=== PATIENT | female | born 1980 | race Caucasian/White ===

== ENCOUNTER 2016-06-07 08:20 | Day surgery (SDC) | payer BC ==
[2016-06-07] MEDS ORDERED: Lactated Ringers 1,000 ML IV SCH (08:45)
[2016-06-07] MEDS ORDERED: Ondansetron 4 MG/2 ML SDV ONE (09:04)
[2016-06-07] MEDS ORDERED: Lidocaine 2% 5 ML SDV ONE (09:04)
[2016-06-07] MEDS ORDERED: Ketorolac 30 MG/ML SDV ONE (09:04)
[2016-06-07] MEDS ORDERED: fentaNYL 250 MCG/5 ML SDV ONE (09:04)
[2016-06-07] MEDS ORDERED: Midazolam 1 MG/ML 2 ML SDV ONE (09:04)
[2016-06-07] MEDS ORDERED: Propofol 200 MG/20 ML SDV ONE (09:04)
[2016-06-07] MEDS ORDERED: Rocuronium 10 MG/ML 10 ML Syringe ONE (09:04)
[2016-06-07] MEDS ORDERED: Neostigmine Methylsulfate 1 MG/ML 5 ML Syringe IV ONE (09:06)
[2016-06-07] MEDS ORDERED: Bupivacaine 0.25% 10 ML SDV ONE (09:38)
[2016-06-07] MEDS ORDERED: Methylene Blue 1% 10 ML SDV ONE (09:38)
--- NOTE | 2016-06-07 09:39 | PCM.PREANE ---
Preanesthetic Assessment - Anesthesia/Transfusion/Family Hx Anesthesia History: Prior Anesthesia Without Reaction Family History of Anesthesia Reaction: No Transfusion History: No Prior Transfusion(s) - Review of Systems General: No Symptoms Pulmonary: No Symptoms Cardiovascular: No Symptoms Gastrointestinal: No symptoms Neurological: No Symptoms - Physical Assessment NPO Status Date: 06/06/16 NPO Status Time: 21:30 O2 Sat by Pulse Oximetry: 98 Respiratory Rate: 16 Vital Signs: Last Vital Signs Temp 37.1 C 06/07/16 08:48 Pulse 57 L 06/07/16 08:48 Resp 16 06/07/16 08:48 BP 126/77 06/07/16 08:48 Pulse Ox 98 06/07/16 08:48 Height: 1.59 m Weight: 74.843 kg ASA Class: 2 Mental Status: Alert & Oriented x3 Airway Class: Mallampati = 2 Dentition: Reports: Normal Dentition ROM/Head Extension: Full Lungs: Clear to auscultation Cardiovascular: Regular Rate - Lab Values: Laboratory Last Values WBC 3.69 K/uL (4.0-11.0) L 06/07/16 08:41 RBC 4.27 M/uL (4.30-5.90) L 06/07/16 08:41 Hgb 13.5 g/dL (12.0-16.0) 06/07/16 08:41 Hct 39.9 % (36.0-46.0) 06/07/16 08:41 MCV 93.4 fL (80.0-98.0) 06/07/16 08:41 MCH 31.6 pg (27.0-32.0) 06/07/16 08:41 MCHC 33.8 g/dL (31.0-37.0) 06/07/16 08:41 RDW Std Deviation 41.3 fl (28.0-62.0) 06/07/16 08:41 RDW Coeff of Timothy 12 % (11.0-15.0) 06/07/16 08:41 Plt Count 147 K/uL (150-400) L 06/07/16 08:41 MPV 10.90 fL (7.40-12.00) 06/07/16 08:41 Nucleated RBC % 0.0 /100WBC 06/07/16 08:41 Nucleated RBCs # 0 K/uL 06/07/16 08:41 HCG, Qual NEGATIVE (NEG) 06/07/16 08:41 - Allergies Allergies/Adverse Reactions: Allergies Allergy/AdvReac Type Severity Reaction Status Date / Time adhesive tape Allergy Rash Verified 06/02/16 10:57 - Anesthesia Plan Pre-Op Medication Ordered: None - Acknowledgements Anesthesia Type Planned: General Anesthesia Pt an Appropriate Candidate for the Planned Anesthesia: Yes Alternatives and Risks of Anesthesia Discussed w Pt/Guardian: Yes Pt/Guardian Understands and Agrees with Anesthesia Plan: Yes PreAnesthesia Questionnaire - Past Health History Medical/Surgical History: Denies Medical/Surgical History HEENT History: Reports: Other (see below) Other HEENT History: wears glasses Genitourinary History: Reports: None 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: - Past Surgical History Head Surgeries/Procedures: Reports: None HEENT Surgical History: Reports: Oral surgery, Tonsillectomy Other HEENT Surgeries/Procedures: hx of wisdom teeth extraction Female Surgical History: Reports: section - SUBSTANCE USE Smoking Status *Q: Never Smoker Recreational Drug Use History: No - HOME MEDS Home Medications: Home Meds Bartholomew 10 tab PO DAILY 06/02/16 [History] Ascorbic Acid [Vitamin C] 1 tab PO DAILY 06/02/16 [History] Garlic 1 tab PO DAILY 06/02/16 [History] Multivitamin [Multivitamins] 1 tab PO DAILY 06/02/16 [History] [place]-3/DHA/Epa/Fish Oil [[place]-3 Fish Oil 1,200 MG Sfgl] 2,400 mg PO DAILY [History] - CURRENT (IN HOUSE) MEDS Current Meds: Current Medications Lactated Ringer's (Ringers, Lactated) 1,000 mls @ 125 mls/hr IV ASDIRECTED EDILIA Last Admin: 06/07/16 09:19 Dose: 125 mls/hr Discontinued Medications Fentanyl (Sublimaze) Confirm Administered Dose 250 mcg .ROUTE .STK-MED ONE Stop: 06/07/16 09:05 Glycopyrrolate () 1 mg IVPUSH .STK-MED ONE Stop: 06/07/16 09:07 Ketorolac Tromethamine (Toradol) Confirm Administered Dose 30 mg .ROUTE .STK- MED ONE Stop: 06/07/16 09:05 Lidocaine (Xylocaine-Mpf 2%) Confirm Administered Dose 10 ml .ROUTE .STK-MED ONE Stop: 06/07/16 09:05 Midazolam HCl (Versed 1 Mg/Ml) Confirm Administered Dose 2 mg .ROUTE .STK-MED ONE Stop: 06/07/16 09:05 Neostigmine Methylsulfate (Neostigmine) 5 mg IV .STK-MED ONE Stop: 06/07/16 09:07 Ondansetron HCl (Zofran) Confirm Administered Dose 4 mg .ROUTE .STK-MED ONE Stop: 06/07/16 09:05 Propofol (Diprivan 20 Ml) Confirm Administered Dose 400 mg .ROUTE .STK-MED ONE Stop: 06/07/16 09:05 Rocuronium [place] (Zemuron) Confirm Administered Dose 100 mg .ROUTE .STK-MED ONE Stop: 06/07/16 09:05 Preanesthetic Assessment - ANESTHESIA/TRANSFUSION/FAMILY HX Family History of Anesthesia Reaction: No - PHYSICAL ASSESSMENT O2 Sat by Pulse Oximetry: 98 RR: 16 Vital Signs: Last Vital Signs Temp 37.1 C 06/07/16 08:48 Pulse 57 L 06/07/16 08:48 Resp 16 06/07/16 08:48 BP 126/77 06/07/16 08:48 Pulse Ox 98 06/07/16 08:48 Height: 1.59 m Weight: 74.843 kg NPO Status Date: 06/06/16 NPO Status Time: 21:30 - LAB Values: Laboratory Last Values WBC 3.69 K/uL (4.0-11.0) L 06/07/16 08:41 RBC 4.27 M/uL (4.30-5.90) L 06/07/16 08:41 Hgb 13.5 g/dL (12.0-16.0) 06/07/16 08:41 Hct 39.9 % (36.0-46.0) 06/07/16 08:41 MCV 93.4 fL (80.0-98.0) 06/07/16 08:41 MCH 31.6 pg (27.0-32.0) 06/07/16 08:41 MCHC 33.8 g/dL (31.0-37.0) 06/07/16 08:41 RDW Std Deviation 41.3 fl (28.0-62.0) 06/07/16 08:41 RDW Coeff of Timothy 12 % (11.0-15.0) 06/07/16 08:41 Plt Count 147 K/uL (150-400) L 06/07/16 08:41 MPV 10.90 fL (7.40-12.00) 06/07/16 08:41 Nucleated RBC % 0.0 /100WBC 06/07/16 08:41 Nucleated RBCs # 0 K/uL 06/07/16 08:41 HCG, Qual NEGATIVE (NEG) 06/07/16 08:41 - ALLERGIES Allergies/Adverse Reactions: Allergies Allergy/AdvReac Type Severity Reaction Status Date / Time adhesive tape Allergy Rash Verified 06/02/16 10:57
[2016-06-07] MEDS ORDERED: Sodium Chloride 0.9% 2.5 ML Syringe FLUSH PRN (09:56)
[2016-06-07] MEDS ORDERED: ceFAZolin 1 GM in Premix Bag 1 BAG IV ONE (09:56)
[2016-06-07] MEDS ORDERED: Sodium Chloride 0.9% 10 ML Syringe FLUSH PRN (09:56)
[2016-06-07] MEDS ORDERED: HYDROmorphone 2 MG/ML Syringe IVPUSH ONE (10:44)
[2016-06-07] MEDS ORDERED: fentaNYL 100 MCG/2 ML SDV IVPUSH PRN (10:44)
--- NOTE | 2016-06-07 11:44 | PCM.OPNOTE ---
- General Post-Op/Procedure Note Date of Surgery/Procedure: 06/07/16 Operative Procedure(s): Operative laparoscopy with bilateral salpingectomy/ essure coil removal/lysis or anterior abdominal wall==omental adhesions. Diagnostic hysteroscopy with stephanie endometrial ablation Findings: Omental, anterior abdominal wall adhesions midline Normal appearing uterine cavity Pre Op Diagnosis: Pelvic pain. Menorrhagia Post-Op Diagnosis: Same Anesthesia Technique: General ET tube Primary Surgeon: Iraida Mercado Pathology: tubes/essure coils Fluid Replacement, Intraop: 1,400 (80 ml fluid deficit NS hysteroscopy) EBL in mLs: 10 Complications: None known Condition: Good Free Text/Narrative:: Intake & Output 06/06/16 06/07/16 06/07/16 22:59 06:59 14:59 Output Total 30 Balance -30 [id number]
--- NOTE | 2016-06-07 12:08 | PCM.POSTAN ---
POST ANESTHESIA ASSESSMENT - MENTAL STATUS Mental Status: alert (to Phase II), oriented - RESPIRATORY Respiratory Status: respiratory rate WNL, airway patent, O2 saturation stable - CARDIOVASCULAR CV Status: pulse rate WNL, blood pressure stable - GASTROINTESTINAL GI Status: no symptoms - POST OP HYDRATION Hydration Status: adequate & stable
[2016-06-07 14:02] VITALS: BP 108/56
--- NOTE | 2016-06-07 14:13 | PCM48HPAN ---
Post Anesthesia Note - EVALUATION WITHIN 48HRS OF ANESTHETIC Vital Signs in Normal Range: Yes Patient Participated in Evaluation: Yes Respiratory Function Stable: Yes Airway Patent: Yes Cardiovascular Function Stable: Yes Hydration Status Stable: Yes Pain Control Satisfactory: Yes Nausea and Vomiting Control Satisfactory: Yes Mental Status Recovered: Yes
--- NOTE | 2016-06-13 09:17 | OR ---
SURGEON: Iraida Mercado M.D. DATE OF PROCEDURE: 06/07/2016 PREOPERATIVE DIAGNOSES: 1. Pelvic pain. 2. Menorrhagia. POSTOPERATIVE DIAGNOSES: 1. Pelvic pain. 2. Menorrhagia. PROCEDURE: 1. Operative laparoscopy with bilateral salpingectomy, removal of Essure coils, lysis of the omental anterior abdominal wall adhesions. 2. Diagnostic hysteroscopy with Ayesha thermal endometrial ablation. ANESTHESIA: General endotracheal anesthesia. FLUIDS: 1400 mL crystalloid. Fluid deficit 80 mL crystalloid normal saline. ESTIMATED BLOOD LOSS: 10 mL. COMPLICATIONS: None known. FINDINGS: 1. Overall normal-appearing pelvis other than some fairly dense omental anterior abdominal wall adhesions along the midline. 2. Normal-appearing uterine cavity. DISPOSITION: The patient to PACU, stable. PROCEDURE IN DETAIL: Floernce is a 35-year-old female, who has had been dealing with pelvic pain for the past 4 to 5 months. Ultrasound has been normal. Evaluation for infection or other etiology has been essentially negative. At this time, she would like to proceed with further evaluation of the pelvis via laparoscopy, also she is concerned that the pain could be from her Essure coils and would prefer to have these actually removed and a salpingectomy performed at the time of laparoscopy. She also had difficulties with heavy menses. Endometrial biopsy is benign. She would like to proceed with surgical intervention form of thermal endometrial ablation at the time of the laparoscopy. Risks of the procedure have been discussed and proper consent was obtained. The patient was taken to the operating room, where she underwent general endotracheal anesthesia and was placed in modified dorsal lithotomy position and was prepped and draped in the usual sterile fashion. The bladder was drained. SCDs to lower extremities. Sinha to gravity. Time-out was performed. A speculum was then introduced into the vagina. Anterior lip of cervix was grasped with an Allis clamp. The cervix was gently dilated to 8 mm. Internal os was sounded to 5 cm. The HUMI uterine manipulator was now placed and balloon insufflated. The speculum and Allis now removed. Gloves were changed. Attention was turned to the abdomen. Infraumbilically, the region was prepped with 0.25% Marcaine. Please see nurse's notes for total amount of local dispensed during the procedure. A 5 mm midline sagittal infraumbilical skin incision was made. Anterior abdominal wall was tented upward. A Veress needle was gently introduced. Saline hanging drop test was performed. Pneumoperitoneum was achieved. Veress needle was removed. A 5 mm trocar was introduced. Laparoscope was introduced. Peritoneal contents were identified. Meanwhile, I was able to identify the omental adhesions directly below this region in the pelvis. The uterus appeared mobile. Attention was turned to placing the right lower quadrant port, region was prepped with 0.25% Marcaine. A 12 mm skin incision was created followed by introduction of 12 mm trocar, in similar fashion was performed on the patient's left side except utilized a 5 mm trocar. I was able to lyse the anterior abdominal wall adhesions now with LigaSure. This allowed of better visualization of the pelvis. The uterus once again was closely inspected, posterior anterior cul-de-sac without any significant adhesions except for few uterovesical adhesions from previous . Tubes and ovaries appeared normal. Ureters seen peristalsing nicely. The upper abdomen was inspected. The liver edge is smooth. No upper abdominal pathology was able to be observed. Attention was now turned to perform the salpingectomy. The left fallopian tube was able to be isolated and tented upward with grasper and using LigaSure was able to perform salpingectomy. The majority of the Essure coil was able to be removed at this time as well on this side and a similar fashion performed on the patient's right side. The fallopian tubes were placed in the anterior cul-de- sac. An Endobag was now introduced. The fallopian tubes with the Essure coils were placed in the Endobag and the Endobag was removed through the right lower quadrant port. Specimens will be now sent to pathology. Pelvis was now once again closely inspected. Hemostasis appears evident. Pneumoperitoneum was released. Laparoscopic instruments were removed. Attention was now turned vaginally. The speculum was introduced into the vagina. Once again, anterior lip of cervix was grasped with an Allis clamp. The 5 mm diagnostic hysteroscope was now introduced and normal saline was used as the distention media, it was able to visualize the endometrial cavity. No lesions were able to be identified. There is still coil remnants on either side able to be visualized in the ostia. These were grasped with hysteroscopic grasper and removed for the entirety, presumed entirety of the coils now successfully removed. These specimens will be sent to pathology. Hysteroscope was now gently removed and Ayesha device is prepped according to scarf gluer protocol with the cervix measuring to 5 cm. This was set on the device. The device probe was now introduced into the uterine cavity to the level of the fundus and the arms were gently opened. The balloon was insufflated and the endometrial ablative process now commenced as a total of 120 seconds of ablation process occurred. At this juncture, I was able to release the balloon and removed the device in the procedure for a complete ablative process. The cervix was now closely inspected. Hemostasis appears evident. All instruments were removed from the vagina. Gloves were changed. Attention was turned abdominally. The trocars were now removed. Pneumoperitoneum had been released. The right lower quadrant fascia was reapproximated using 0 Vicryl in continuous running fashion. The skin edges were now closed using 3-0 Monocryl in subcuticular fashion. Sponge, instrument, and needle counts were correct x2. The patient tolerated the procedure well. She will go to PACU in stable condition. Specimens to pathology. RYAN / JOSHUA /[id number]
== END 2016-06-07 12:50 | disposition home or self-care (01) ==
LOC: MW.SDS 08:20
PROVIDERS: ATTEND Obstetrics & Gynecology
PROC: 0UT74ZZ Resection of Bilateral Fallopian Tubes, Percutaneous Endoscopic Approach (ICD-10-PCS; principal; 2016-06-07)
PROC: 0U574ZZ Destruction of Bilateral Fallopian Tubes, Percutaneous Endoscopic Approach (ICD-10-PCS; 2016-06-07)
PROC: 0UPD7HZ Removal of Contraceptive Device from Uterus and Cervix, Via Natural or Artificial Opening (ICD-10-PCS; 2016-06-07)
DX: N83.8 Other noninflammatory disorders of ovary, fallopian tube and broad ligament (principal); N92.0 Excessive and frequent menstruation with regular cycle; Z79.899 Other long term (current) drug therapy
CPT/HCPCS: 36415; 58301; 58563; 58661; 84703; 85027; J1885; J2250; J2405; J3010; J7120; 00840; 88304; J2704; Q9968